=== PATIENT | male | born 1930 | race Hispanic/Latino ===

== ENCOUNTER 2017-06-07 23:47 | Emergency (ER) | payer MEDICARE, OTHER ==
[~2017-06-07 23:47] MED LIST: Calcium Chloride 1000 mg/10 ml Syringe IV ONE
[2017-06-08] MEDS ORDERED: DOPamine 400mg/250ml D5W 400 MG/250 ML BAG IV ONE ×2 (00:04→02:31)
[2017-06-08 00:29] VITALS: BP 50/30; RESP 14; O2SAT 82
--- NOTE | 2017-06-08 00:33 | ED PDOC ---
HPI: Cardiac Arrest Time Seen by Provider: 06/07/17 23:50 Chief Complaint (Nursing): Cardiac Arrest Chief Complaint (Provider): Cardiac arrest History Per: EMS Reason For Code Blue: Respiratory Arrest Circumstances: Brought To ED By EMS Arrest Witnessed By: Family CPR Initiated Prior To MD Arrival?: Yes Down-Time Before ACLS: Mins (20) Treatment Initiated Prior To MD Arrival: CPR, BVM Ventilations Additional Complaint(s): The pt is an 86yo male, brought to ED by [facility] at 23:43 with CPR in progress due to cardiac arrest which happened prior to arrival. History taken from ambulance crew and patient's family members. According to family, pt fell down approximately 8 stairs at home. The fall was heard but unwitnessed, and when the family when to go check on pt promptly after hearing the fall pt was found on the floor, unconscious with bleeding form the pt's skull. the family called ambulance which arrived 5mins after the call; BLS found pt pulse-less on the floor and started CPR. The presented rhythm was non- shockable according to the AED. CPR was continued and patient was not intubated in the filed. Patient arrived to ED at 2343 receiving chest compressions by the crew and chest compressions continued uninterruptedly in the emergency room. See further management in the medical decision making. Per EMS, CPR was performed for 20 minutes in the field. According to the family, patient was of normal behaviour prior to fall. They report pt has a history of vertigo and believe the pt might have fallen from that. Pt's PCP is in [place]. MHX: Vertigo, hypertension, colon cancer and prostate cancer with associated surgeries, mini-stroke. No known family history. - Initial Findings Mentation: Unresponsive Respirations: None (Assisted) Pulse: None Rhythm: Asystole Past Medical History Reviewed: Historical Data, Nursing Documentation, Vital Signs Vital Signs: Last Vital Signs Temp Pulse 53 L 06/08/17 01:27 Resp 14 06/08/17 01:27 BP 50/30 L 06/08/17 01:27 Pulse Ox 82 L 06/08/17 00:27 - Medical History PMH: HTN, Malignancy (colon, prostate) - Surgical History Other surgeries: Prostate surgery, colon surgery - Family History Family History: States: Unknown Family Hx - Living Arrangements Living Arrangements: With Family - Home Medications Home Medications: Ambulatory Orders Medication Instructions Recorded Penicillin VK [Pen-Vee K] 500 mg PO Q6 #12 tab 06/27/16 - Allergies Allergies/Adverse Reactions: Allergies Allergy/AdvReac Type Severity Reaction Status Date / Time No Known Allergies Allergy Verified 06/27/16 12:14 Review of Systems Review Of Systems: ROS cannot be obtained secondary to pt's inabilty to answer questions. Physical Exam - Reviewed Nursing Documentation Reviewed: Yes Vital Signs Reviewed: Yes - Physical Exam Comments: Physical Exam: General: The patient is in cardiac arrest and receiving chest compressions in comatose state. Head: Laceration on occipital scalp. Hematoma and swelling on forehead with abrasions. Eyes: Pupils fixed and dilated, non-reactive. Right sided periorbital ecchymosis and swelling noted. Neck: No deformities or masses noted. ENT: No bleed or obstruction noted in mouth. Dried blood noted right nare. Rate: No pulses, no cardiac activity. Respiratory: No breath sounds; no respiratory effort. + Assisted ventilation with bag mask. Abdomen: Soft, distended, no ecchymosis noted. Genitourinary: Normal appearance Back: Unable to assess Skin: No rash, dry, warm Lower extremities: No swelling, no trauma Motor/sensory: No spontaneous movements. Unable assess senses. Neuro: Comatose and obtunded. Not alert, oriented. - Laboratory Results Result Diagrams: 06/08/17 00:40 06/08/17 00:40 - ECG Interpretation Of ECG: Pulse obtained at 0002 Time: 0005 EKG: Sinus rhythm with 1st degree AV block Normal QRS No ST segment elevations ST segment depression in inferolateral leads. Rate: 99 - Critical Care Total Time (In Min): 190 Documented Critical Care: Time excludes all time spent performint seperately billable procedures Medical Decision Making Medical Decision Making: Impression: Cardiac arrest, head injury, scalp laceration, orbital injury Differential: Cardiac arrest due to arrhythmia, ACS, or intracranial bleeding. R /o intracranial bleeding and c-spine fracture. Plan: -- Cardiac arrest management per ACLS protocol. -- Chest compressions -- Intubation -- Therapeutic hypothermia not indicated because patient is hypotnesive with SBP less than 90 on pressors. -- Code heart entry level sales associate consulted -- See nursing report for medications. Time: 2343 Upon arrival, intial rate was asystole. CPR in progress. Cervical collar placed. Time: 2347 1st dose of norepinephrine given Time: 2349 2nd dose of norepinephrine given Left femoral triple lumen central line placed by Dr. Rockwell, see procedure note. Time: 2352 1 amp of Bicarb given Pt intubated by Dr. Martinez, see procedure note. Time: 2353 3rd dose of norepinephrine given Time: 2354 1 amp Calcium Cl given Time: 2356 16F olivier catheter inserted Time: 1 CPR interrupted, pt has palpable pulses. CPR stopped. Time: 3 250ml Dopamine given Time: 4 EKG performed Time: 6 Levophed 4mg/250ml NS administered Time: 12 Dr. Valentin network designer informed of case who reports pt does not meet criteria for code heart. Cardioversion not indicated, patient is in asystole. Time: 14 CXR performed Time: [address] Abdullahi, pt to be admitted to ICU under Dr. Abdullahi Time: 20 Case discussed with community health education coordinator, Dr. Pruett who came to bedside and evaluated patient. Time: 113 Dr. Pruett informed that pt is maxed out on norepinephrine, blood pressure is still low despite patient being on pressors. Time: 122 CT Head IMPRESSION: 1. Subcutaneous soft tissue swelling/scalp hematoma is noted in the left frontal region, right frontal region and right periorbital region. 2. Comminuted fracture of the medial wall and inferior wall of the right orbit. Suspect nondisplaced fracture of the greater wing of right sphenoid. Time: 122 CT C-Spine IMPRESSION: 1. Partially displaced fracture is seen through the base of the dens/C2. Partially displaced fracture of the right posterior arch of C1. 2. Osteopenia. Cervical straightening is present, which may be due to degenerative changes, cervical collar placement, positioning, muscular spasm or ligamentous injury. Correlate clinically. 3. Large right pneumothorax, partially visualized. 4. Comminuted fractures of the right first and second ribs. Time: 014 Call placed to neurosurgeon converter operator. Time: [address] Richardson and informed of CT findings, who advises c- collar to be placed on pt. States this is a non-surgical fracture and there is no cord compression on CT scan and this does not require an emergent evaluation by neurosurgeon. Time: 211 CXR performed due to indication of penumothorax as seen on CT report. CXR shows large right sided pneumothorax. Time: 219 Call placed to residential recycle driver. Time: 225 medical resident at bedside. Case discussed with Dr. Tapia, who is aware of plan to place chest tube due to increase in size of pneumothorax as seen on CXR. Time: 230 Pt lost pulse and code blue was called. Dr. Martinez present in room. Chest compressions performed, ACLS protocol continued and chest tube placed by residential recycle driver. Chest compressions continued, ACLS protocol continued. Patient with persistent asystole during pulse checks. Time: 252 CPR discontinued due to persistent asystole and no successful return of spontaneous circulation. Time of 02:53 Provider placed certification on [place] electronic registry. -- Findings and results were discussed continuously with the patient's family throughout patient care. Diagnosis: Cardiac arrest, C1 C2 cervical fracture, right sided penumothorax, right sided rib fractures, head injury, scalp laceration. Procedures - Time-Out Type of Procedure: Intubation Site of Procedure: Orotrachea Correct Patient (with visual ID + MR# on ID Band): Yes Correct Procedure: Yes Correct Site Marked: Yes X-Ray Marked: Yes Physician Name: Kristyn Martinez - Central Line Central Line Lumen: triple Central Line Procedure: no betadine prep, no sterile drapes applied, no sterile dressing applied Central Line Postion: femoral (L) Anesthesia: none Complications: none Progress: Performed by the emergency provider, Dr. Ishmael Rockwell Time: 2352 Consent: Was precluded by the urgency of the procedure and the patient condition. Timeout: A timeout to verify the correct patient, procedure, and site was performed. Indication: Cardiac Arrest Location: Left femoral Ultrasound guidance: {No} Technique: The landmarks for the line placement were identified. The vessel was cannulated and a non-tunneled 7.0 Fr triple lumen was placed using the Seldinger technique. Successful placement: {YES} - Intubation Time of Intubation: 23:53 (consent waived due to emergency) Intubation Method: orotracheal Tube Size (cm): 7.5 Breath Sounds after Intubation: equal Intubation Complications: no complications Post Intubation Xray: Yes Progress/Xray Impression: ET tube in trachea above maurice in good position. Small right sided PTX. Disposition - Clinical Impression Clinical Impression: Cardiac arrest - Patient ED Disposition Is Patient to be Admitted: No Counseled Patient/Family Regarding: Studies Performed, Diagnosis - Disposition Disposition Time: 02:53 Condition: - POA Present On Arrival: Falls Or Trauma
[2017-06-08 00:45] LABS: BASO % 0.4 % (0.0-2.0); EOS # 0.1 K/uL (0.0-0.7); EOS % 1.2 % (0.0-4.0); HEMATOCRIT 43.3 % (35.0-51.0); LYMPH # 4.7 K/uL (1.0-4.3); LYMPH % 44.8 % (20.0-40.0); MEAN CELL VOLUME 87.9 fl (80.0-94.0); MEAN CORPUSCULAR HEMOGLOBIN 28.5 pg (27.0-31.0); MEAN CORPUSCULAR HGB CONC 32.4 g/dL (33.0-37.0); MEAN PLATELET VOLUME 9.5 fl (7.2-11.7); MONO # 0.7 K/uL (0.0-0.8); MONO % 7.1 % (0.0-10.0); NEUT # 4.9 K/uL (1.8-7.0); NEUT % 46.5 % (50.0-75.0); NRBC % 0.4 % (0.0-0.0); RED CELL DISTRIBUTION WIDTH 14.2 % (11.5-14.5); WHITE BLOOD COUNT 10.6 K/uL (4.8-10.8)
[2017-06-08 00:51] LABS: BLOOD UREA NITROGEN 25 mg/dl (9-20); CARBON DIOXIDE 24 mmol/L (22-30); CHLORIDE 104 mmol/L (98-107); GFR AFRICAN-AMERICAN > 60; GLUCOSE,RANDOM 172 mg/dL (75-110); POTASSIUM 4.8 MMOL/L (3.6-5.0); SODIUM 143 mmol/l (132-148)
[2017-06-08 00:58] LABS: PARTIAL THROMBOPLASTIN TIME 38.4 Seconds (25.6-37.1)
[2017-06-08 01:30] VITALS: PULSE 53
--- NOTE | 2017-06-08 01:33 | CP.PCM.CON ---
History of Present Illness - History of Present Illness History of Present Illness: CC: Cardiac Arrest Reason for Consult: Cardiac arrest HPI: This is an 86 year old gentleman with a past medical history significant for hypertension, colon cancer s/p surgical removal of lesion, and vertigo, who presents to the ED s/p cardiac arrest at home. His son Jacob, who is present at bedside, relates that the patient was at home and had an unwitnessed fall down stairs. His son heard the fall and immediately came to his aid. There, the son states that he was unconscious and unresponsive and unarousable. He states that he had a large amount of bleeding where his head hit the bottom of the stairs. His son did think he felt a pulse at that time. He called the police and then EMS who arrived on the scene and noted that the patient did not have a pulse when they arrived and began CPR for > 10 minutes. He did regain ROSC and was subsequently brought to the ED here at [facility]. He was noted to have a pulse upon arrival and fixed nondilated pupils. The patient was intubated and central access was obtained by the ED physician. EKG revealed nonspecific T wave changes , with no definite evidence of ST elevation. The case was discussed with the hitcher manager environmental health and safety by the ED physician, who stated that there was no need for his intervention at this time based on labwork and no acute EKG changes. The patient is currently undergoing CT of the head to evaluate for intracranial hemorrhage. Patient is reportedly not on any blood thinners. PMD: none ROS unable to be obtained as patient is unresponsive and intubated. PMH: hypertension, colon cancer s/p surgical removal of lesion, and vertigo PSH: Partial colectomy FH: not contributory SH: Denies tobacco, ETOH, IVDU as per son MEDS: as below and reviewed ALLERGIES: NKDA SURROGATE DECISION MAKER: EXAM: Vitals stable and reviewed GEN: unresponive and unarousable HEENT: Pupils are fixed and nonreactive Neck: supple, no lymphadenopathy CARDIO: +S1S2, RRR, NO M/R/G LUNG: CTAB, NO W/R/R. ET tube sounds ABD: soft, NT, ND, no masses, no HSM EXT: no edema, pedal pulses Neuro: Unable to be assessed. LABS as below and reviewed Medications- none RADS CXR from ED shows rib fx, no acute cardiopulmonary disease, no pneumo EKG shows HR of 99 bpm, nonspecific ST and T wave changes in inferior and lateral leads, no acute ST elevations. occasional PVC. ASSESSMENT AND PLAN: ASSESSMENT - Cardiac arrest, with ROSC s/p fall, unclear etiology, r/o SC, r/o arrhythmia, r/o CVA, - Head trauma with no evidence of intracranial bleed as per preliminary read, will f/u with final report - Hypotension requiring Levophed - Hx Colon cancer- unclear as to the extent of his neoplasm as far as staging - Hx Vertigo, may have been the cause of his intial fall if he had episode PLAN - Admit to ICU - Continue current ventilator settings, with ABG in AM - Continue Levophed drip to titrate to > 90 SBP - Will abstain from hypothermia protocol at this time as the patient continues to be significantly hypotensive despite pressors. This was discussed with the ED physician - NPO status - Start insulin sliding scale with accuchecks q 6 hours - The prognosis of the patient is poor given his cardiac arrest and comorbidities including advanced age. This was discussed with the family by myself, who are aware of the patient's prognosis. - Time spent on patient including discussion with family of prognosis, charting , formulation of Assesment and plan, and communication between nurses and physicians involved in the care is 55 minutes Past Patient History - Infectious Disease Hx of Infectious Diseases: None - Past Social History Smoking Status: Unknown If Ever Smoked - CARDIAC Hx Hypertension: Yes - NEUROLOGICAL HX Cerebrovascular Accident: Yes Hx Vertigo: Yes - RENAL Hx Kidney Stones: Yes - GASTROINTESTINAL Other/Comment: colon ca - GENITOURINARY/GYNECOLOGICAL Hx Prostate Cancer: Yes Hx Prostate Problems: Yes - PSYCHIATRIC Hx Substance Use: No - SURGICAL HISTORY Hx Surgeries: Yes (colon tumor excision) - ANESTHESIA Hx Anesthesia: No Hx Anesthesia Reactions: No Meds Allergies/Adverse Reactions: Allergies Allergy/AdvReac Type Severity Reaction Status Date / Time No Known Allergies Allergy Verified 06/27/16 12:14 Results - Vital Signs Recent Vital Signs: Last Vital Signs Temp Pulse 53 L 06/08/17 00:27 Resp 14 06/08/17 00:27 BP 50/30 L 06/08/17 00:27 Pulse Ox 82 L 06/08/17 00:27 - Labs Result Diagrams: 06/08/17 00:40 06/08/17 00:40 Labs: Laboratory Results - last 24 hr 06/08/17 00:40 WBC 10.6 RBC 4.92 Hgb 14.0 Hct 43.3 MCV 87.9 MCH 28.5 MCHC 32.4 L RDW 14.2 Plt Count 194 MPV 9.5 Neut % (Auto) 46.5 L Lymph % (Auto) 44.8 H Placer % (Auto) 7.1 Eos % (Auto) 1.2 Baso % (Auto) 0.4 Neut # 4.9 Lymph # 4.7 H Placer # 0.7 Eos # 0.1 Baso # 0.0
[2017-06-08] MEDS ORDERED: Sodium Bicarbonate 7.5% (0.9 MEQ/ML) 50ML INJ IV ONE (02:59)
[2017-06-08] MEDS ORDERED: EPINEPHrine 1 mg/ml (1:1000) Inj IV ONE (02:59)
[2017-06-08] MEDS ORDERED: DOPamine 400mg/250ml D5W IV ONE (02:59)
--- NOTE | 2017-06-08 04:09 | CP.PCM.CON ---
History of Present Illness - History of Present Illness History of Present Illness: Surgery: Dr. Tapia Reason for consult: chest tube placement for pnx HPI: Patient is an 86 y/o male who presented to ER s/p fall and cardiac arrest witnessed by son. ACLS performed, patient intubated, and ROSC was achieved. Incidental pnx found on CT of cervical spine. Surgical consult requested for placement of chest tube. History limited due to acuity of condition. Review of Systems - Review of Systems Systems not reviewed;Unavailable: Acuity of Condition Past Patient History - Infectious Disease Hx of Infectious Diseases: None - Past Social History Smoking Status: Unknown If Ever Smoked - CARDIAC Hx Hypertension: Yes - NEUROLOGICAL HX Cerebrovascular Accident: Yes Hx Vertigo: Yes - RENAL Hx Kidney Stones: Yes - GASTROINTESTINAL Other/Comment: colon ca - GENITOURINARY/GYNECOLOGICAL Hx Prostate Cancer: Yes Hx Prostate Problems: Yes - PSYCHIATRIC Hx Substance Use: No - SURGICAL HISTORY Hx Surgeries: Yes (colon tumor excision) - ANESTHESIA Hx Anesthesia: No Hx Anesthesia Reactions: No Meds Allergies/Adverse Reactions: Allergies Allergy/AdvReac Type Severity Reaction Status Date / Time No Known Allergies Allergy Verified 06/27/16 12:14 Physical Exam - Constitutional Appears: Toxic - ENT Exam Additional comments: ET tube in place Results - Vital Signs Recent Vital Signs: Last Vital Signs Temp Pulse 53 L 06/08/17 01:27 Resp 14 06/08/17 01:27 BP 50/30 L 06/08/17 01:27 Pulse Ox 82 L 06/08/17 00:27 - Labs Result Diagrams: 06/08/17 00:40 06/08/17 00:40 Labs: Laboratory Results - last 24 hr 06/08/17 06/08/17 06/08/17 00:40 00:40 00:40 WBC 10.6 RBC 4.92 Hgb 14.0 Hct 43.3 MCV 87.9 MCH 28.5 MCHC 32.4 L RDW 14.2 Plt Count 194 MPV 9.5 Neut % (Auto) 46.5 L Lymph % (Auto) 44.8 H Gove % (Auto) 7.1 Eos % (Auto) 1.2 Baso % (Auto) 0.4 Neut # 4.9 Lymph # 4.7 H Gove # 0.7 Eos # 0.1 Baso # 0.0 PT 12.1 INR 1.2 APTT 38.4 H Sodium 143 Potassium 4.8 Chloride 104 Carbon Dioxide 24 Anion Gap 20 BUN 25 H Creatinine 1.3 Est GFR ( Amer) > 60 Est GFR (Non-Af Amer) 52 Random Glucose 172 H Calcium 9.0 Troponin I < 0.0120 Assessment & Plan - Assessment and Plan (Free Text) Assessment: 86 y/o male w/ pneumothorax s/p ACLS 2/2 cardiac arrest w/ ROSC Plan: -patient decompensated while in ER prior to chest tube placement -Code blue was call and ACLS initiated -chest tube placed bedside for pneumothorax -ACLS continued during procedure however ROSC was not acheived -case d/w Dr. Tapia [facility] PGY3 Chest Tube Insertion - Chest Tube Placement Indication: Pneumothorax Consent Obtained: Implied D/T Emergency Situation Procedural Sedation: None Procedure Description: Prepped W/Betadine Incision Completed And Tube Inserted At: presumed 5 intercostal space and up to 16cm juana on 28Fr tube Post Insertion Procedure(s): Tube Sutured To Chest Wall, Tube Connected To Suction, No Air Leak Noted
--- NOTE | 2017-06-08 09:42 | CT ---
PROCEDURE: CT HEAD WITHOUT CONTRAST. HISTORY: headache. Injury or trauma, fall COMPARISON: None available. TECHNIQUE: Axial computed tomography images were obtained through the head/brain without intravenous contrast. Radiation dose: Total exam DLP = 1365.7 mGy-cm. This CT exam was performed using one or more of the following dose reduction techniques: Automated exposure control, adjustment of the mA and/or kV according to patient size, and/or use of iterative reconstruction technique. FINDINGS: HEMORRHAGE: There is high attenuation along the left tentorium noted may represent tentorial thickening versus small subdural hematoma. Otherwise no evidence of acute intracranial hemorrhage. BRAIN: No mass effect or edema. Mild white matter changes likely represent chronic microvascular ischemic disease. VENTRICLES: Unremarkable. No hydrocephalus. CALVARIUM: There are comminuted fractures at the medial and inferior uribe of the right orbit. PARANASAL SINUSES: There is partial opacification of the right frontal sinus. Partial opacification and small air-fluid level seen at the right maxillary sinus and right ethmoid air cells. MASTOID AIR CELLS: Unremarkable as visualized. No inflammatory changes. OTHER FINDINGS: There is right frontal scalp soft tissue swelling and small hematoma noted. Mild fat stranding seen at the posterior aspect of the right orbit. Small amount of air seen at the medial aspect of the right orbit. IMPRESSION: High attenuation and thickening seen along the left tentorium may represent dural thickening versus small subdural hematoma. Follow-up study is recommended. Comminuted fractures at the medial and inferior uribe of the right orbit noted associated with small hemorrhage in the right maxillary sinus and opacification of the right ethmoid sinuses. Subcutaneous soft tissue swelling and scalp hematoma noted at the frontal region and right periorbital region. Mild white matter changes likely due to chronic microvascular ischemic disease. Preliminary report was submitted by [facility].
--- NOTE | 2017-06-08 10:06 | CT ---
PROCEDURE: CT Cervical Spine without contrast HISTORY: Trauma, fell done COMPARISON: No prior similar study available for comparison TECHNIQUE: Axial computed tomography images were obtained of the cervical spine without the use of intravenous contrast. Coronal and sagittal reformatted images were created and reviewed. Radiation dose: Total exam DLP = 603.64 mGy-cm. This CT exam was performed using one or more of the following dose reduction techniques: Automated exposure control, adjustment of the mA and/or kV according to patient size, and/or use of iterative reconstruction technique. FINDINGS: VERTEBRAE: There is acute displaced fracture through the base of the odontoid process associated with approximately 4 millimeter posterior displacement of the odontoid relative to the C2 body. There is also nondisplaced fracture at the anterior aspect of C2 vertebral body. There is suspicious for partially displaced fracture at the right posterior arch of C1. There are also mildly displaced fracture at the spinal process of C6-C7 and T1. Diffuse osteopenia is noted in the visualized osseous structures. DISCS/SPINAL CANAL/NEURAL FORAMINA: There are moderate to mildly severe degenerative disc changes associated with multilevel posterior osteophyte disc bulge complex and multilevel narrowing of the disc spaces. . PARASPINAL SOFT TISSUES: The patient is status post intubation. Partially imaged right pneumothorax noted. There are also comminuted fractures at the right 1st and 2nd ribs. OTHER FINDINGS: None. IMPRESSION: Acute comminuted and approximately 4 millimeter displaced fracture through the base / proximal of the odontoid process. Fracture at the anterior aspect of the C2 vertebral body. Suspicious for fracture at the right posterior arch of C1. Displaced fractures at the spinal process of C6, C7 and T1. Comminuted fractures at the right 1st and 2nd ribs associated with right pneumothorax. Preliminary report was submitted by [facility]
--- NOTE | 2017-06-08 11:25 | RAD ---
PROCEDURE: CHEST RADIOGRAPH, 1 VIEW HISTORY: routine COMPARISON: None available. FINDINGS: LUNGS: Clear. PLEURA: Small right pneumothorax. I would estimate this to be less than 10% of the right pulmonary volume. CARDIOVASCULAR: No radiographic findings to suggest acute or significant cardiovascular disease. OSSEOUS STRUCTURES: There also appear to be fractures of left 1st rib and right 1st rib. Additional fracture affecting posterior aspect left 7th rib. VISUALIZED UPPER ABDOMEN: Normal. OTHER FINDINGS: Satisfactory position of endotracheal tube. IMPRESSION: Small right pneumothorax less than 10% of right lung volume Fractures of upper right and left ribs. These fractures are unknown based on prior CT scan including cervical spine and reported 01:23.
--- NOTE | 2017-06-08 11:52 | RAD ---
HISTORY: intubated COMPARISON: Comparison is made to the previous same-day exam. FINDINGS: LUNGS: Interval partial collapse of the right lung due to right pneumothorax since the previous exam. The ET tube is seen at appropriate position. Diffuse hazy opacities seen in the lungs. PLEURA: Interval significant increase in the size of the right pneumothorax since the previous exam. The right pneumothorax is now approximately 50 percent. CARDIOVASCULAR: Normal. OSSEOUS STRUCTURES: No significant abnormalities. VISUALIZED UPPER ABDOMEN: Normal. OTHER FINDINGS: None. IMPRESSION: Interval significant increase in the size of the right pneumothorax since the previous study associated with partial collapse of the right lung. Mediastinal shift to the left is seen. The ET tube seen at appropriate position.
--- NOTE | 2017-06-10 11:46 | CARD ---
APPROVED REPORT EKG Measurement Heart [id number] <Conclusion> Sinus rhythm with 1st degree AV block with premature supraventricular complexes ST & T wave abnormality, consider inferolateral ischemia Abnormal ECG
== END 2017-06-08 02:53 ==
LOC: H.ER 23:47 → H.ICU/CCU 06-08 00:34 → UNDOADMIN 06-08 00:34 → H.ER 06-08 02:53 → UNDODISIN 06-08 03:00
DX: I46.9 Cardiac arrest, cause unspecified (principal); S09.90XA Unspecified injury of head, initial encounter; S22.41XA Multiple fractures of ribs, right side, initial encounter for closed fracture; J93.9 Pneumothorax, unspecified; I10 Essential (primary) hypertension; Z85.46 Personal history of malignant neoplasm of prostate; C18.9 Malignant neoplasm of colon, unspecified; Z87.442 Personal history of urinary calculi; Z86.73 Personal history of transient ischemic attack (TIA), and cerebral infarction without residual deficits
CPT/HCPCS: 31500; 32551; 36556; 70450; 71010; 72125; 80048; 82948; 84484; 85025; 85610; 85730; 92950; 93005; 94002; 96374; 99285; J0171; J1265; J7060